=== PATIENT | male | born 1995 | race Caucasian/White ===

== ENCOUNTER 2017-11-25 21:55 | Emergency (ER) | payer SELFPAY ==
[~2017-11-25] VITALS: Ht 172.7 cm; Wt 69.3 kg
[2017-11-25 23:36] VITALS: BP 164/117
[2017-11-26] MEDS ORDERED: PERCOCET 5/31 TABLET PO (01:24)
== END 2017-11-26 02:29 | disposition home or self-care (01) ==
LOC: EME 21:55 → TRA 21:55
DX: S70.02XA Contusion of left hip, initial encounter (principal); S42.001A Fracture of unspecified part of right clavicle, initial encounter for closed fracture; S30.1XXA Contusion of abdominal wall, initial encounter; V86.56XA Driver of dirt bike or motor/cross bike injured in nontraffic accident, initial encounter; F17.200 Nicotine dependence, unspecified, uncomplicated
CPT/HCPCS: 73000; 73030; 74176; J2405; J3010; J7030